=== PATIENT | male | born 1960 | race African-American/Black ===

== ENCOUNTER 2016-10-30 13:07 | Emergency (ER) | payer OTHER ==
[~2016-10-30] VITALS: Ht 193 cm; Wt 124.7 kg
[2016-10-30 13:30] VITALS: BP 131/93
--- NOTE | 2016-10-30 13:41 | Emergency Room Report ---
History of Present Illness General Chief Complaint: Headache Source: Patient Present Illness [facility] The patient is a 55-year-old male presenting for hypertension and headache. He states that he has a history of hypertension and is on some medications which he has not taken for the past 4 days. [facility] and vitals showed blood pressure of 160/112. The patient then began to take his medications as directed and blood pressure reduced at home. He describes the headache as 5/10 dull ache which began 2 days prior and has continued. No known provoking relieving factors. He denies any other symptoms including N, V, F, chills, SOB, CP, dizziness, blurred vision, weakness, neck pain Allergies: Coded Allergies: No Known Allergies (Unverified , 10/30/16) Patient History Past Medical History: see triage record, HTN Pertinent Family History: none Reviewed Nursing Documentation: PMH: Agreed, PSxH: Agreed Nursing Documentation-PMH Past Medical History: No History, Except For Hx Hypertension: Yes Review of Systems All Other Systems: negative except mentioned in HPI Physical Exam Vital Signs Date Time Temp Pulse Resp B/P (MAP) Pulse Ox O2 Delivery O2 Flow Rate FiO2 10/30/16 13:17 98.1 64 21 134/75 96 Room Air Sp02 EP Interpretation: reviewed, normal General Appearance: no apparent distress, alert, GCS 15, non-toxic Head: normocephalic, atraumatic Eyes: bilateral eye normal inspection, bilateral eye PERRL ENT: hearing grossly normal, normal pharynx, no angioedema, normal voice Neck: full range of motion, supple/symm/no masses Respiratory: chest non-tender, lungs clear, normal breath sounds, speaking full sentences Cardiovascular #1: regular rate, rhythm, no edema Gastrointestinal: normal bowel sounds, non tender, soft, non-distended, no guarding, no rebound Musculoskeletal: back normal, gait/station normal, normal range of motion, non- tender Neurologic: alert, oriented x3, responsive, motor strength/tone normal, sensory intact, speech normal Psychiatric: judgement/insight normal, memory normal, mood/affect normal, no suicidal/homicidal ideation Skin: normal color, no rash, warm/dry, well hydrated Lymphatic: no adenopathy Medical Decision Making PA Attestation Dr. Oakley is my supervising physician. Patient management was discussed with my supervising physician Diagnostic Impression: Primary Impression: Headache Qualified Codes: R51 - Headache Additional Impression: Hypertension Qualified Codes: I10 - Essential (primary) hypertension ER Course The patient is a 55-year-old male presenting for hypertension and headache Differential diagnoses include but not limited to Migraine, tension headache, HTN, ICH, CVA, YULIANA, among others PE: Vitals WNL. Non hypertensive. NAD A&Ox3 Head NC/AT PERRL RRR. Lungs CTA bilat Labs unremarkable. CT head unremarkable. Repeat blood pressures WNL. The patient will conitnue taking BP meds as his PMD prescribed and FU IVORY. ER precautions given Laboratory Tests Test 10/30/16 13:44 White Blood Count 8.9 K/UL (4.8-10.8) Red Blood Count 4.41 M/UL (4.70-6.10) L Hemoglobin 13.6 G/DL (14.2-18.0) L Hematocrit 40.1 % (42.0-52.0) L Mean Corpuscular Volume 91 FL (80-99) Mean Corpuscular Hemoglobin 30.8 PG (27.0-31.0) Mean Corpuscular Hemoglobin Concent 33.9 G/DL (32.0-36.0) Red Cell Distribution Width 13.2 % (11.6-14.8) Platelet Count 204 K/UL (150-450) Mean Platelet Volume 6.0 FL (6.5-10.1) L Neutrophils (%) (Auto) 62.8 % (45.0-75.0) Lymphocytes (%) (Auto) 26.8 % (20.0-45.0) Monocytes (%) (Auto) 9.2 % (1.0-10.0) Eosinophils (%) (Auto) 0.2 % (0.0-3.0) Basophils (%) (Auto) 1.1 % (0.0-2.0) Sodium Level 144 mEQ/L (135-145) Potassium Level 3.6 mEQ/L (3.4-4.9) Chloride Level 106 mEQ/L (98-107) Carbon Dioxide Level 28 mEQ/L (20-30) Anion Gap 10 (5-15) Blood Urea Nitrogen 23 mg/dL (7-23) Creatinine 1.2 mg/dL (0.7-1.2) Estimate Glomerular Filtration Rate > 60 mL/min (>60) Glucose Level 112 mg/dL (74-106) H Calcium Level 9.0 mg/dL (8.6-10.2) Total Bilirubin 0.3 mg/dL (0.0-1.2) Aspartate Amino Transferase (AST) 17 U/L (5-40) Alanine Aminotransferase (ALT) 23 U/L (3-41) Alkaline Phosphatase 71 U/L (40-129) Total Protein 6.7 g/dL (6.6-8.7) Albumin 3.7 g/dL (3.5-5.2) Globulin 3.0 g/dL Albumin/Globulin Ratio 1.2 (1.0-2.7) Lab Results Impression WNL CT/MRI/US Diagnostic Results CT/MRI/US Diagnostic Results : Imaging Test Ordered: CT head Impression unremarkable Last Vital Signs Date Time Temp Pulse Resp B/P (MAP) Pulse Ox O2 Delivery O2 Flow Rate FiO2 10/30/16 13:17 98.1 64 21 134/75 96 Room Air Status: improved Disposition: HOME, SELF-CARE Condition: Improved Scripts Ibuprofen* (MOTRIN*) 600 Mg Tablet 600 MG ORAL Q8H Y for For Pain, #30 TAB 0 Refills Prov: AKHIL VELASQUEZ 10/30/16 AKHIL VELASQUEZ Oct 30, 2016 13:41
[2016-10-30 14:00] LABS: BASOPHILS % (AUTO) 1.1 % (0.0-2.0); EOSINOPHILS % (AUTO) 0.2 % (0.0-3.0); LYMPHOCYTES % (AUTO) 26.8 % (20.0-45.0); MEAN CORPUSCULAR HEMOGLOBIN 30.8 PG (27.0-31.0); MEAN CORPUSCULAR HGB CONC 33.9 G/DL (32.0-36.0); MEAN CORPUSCULAR VOLUME 91 FL (80-99); MONOCYTES % (AUTO) 9.2 % (1.0-10.0); NEUTROPHILS % (AUTO) 62.8 % (45.0-75.0); PLATELET COUNT 204 K/UL (150-450); RED BLOOD COUNT 4.41 M/UL (4.70-6.10); RED CELL DISTRIBUTION WIDTH 13.2 % (11.6-14.8); WHITE BLOOD COUNT 8.9 K/UL (4.8-10.8)
--- NOTE | 2016-10-30 14:15 | Diagnostic Imaging Report ---
Indication: Headache Technique: Contiguous 5 mm thick transaxial imaging of the head obtained in a Siemens Sensation [address] scanner. Soft tissue and bone windows generated. Total Dose length Product (DLP): [address] Dose Index Volume (CTDIvol): 70.38, 0.15 mGy Comparison: none Findings: The size and configuration of the cortical sulci, basal cisterns, and ventricles are within normal limits for age. There is no mass effect, midline shift, or edema identified. There is no evidence of acute hemorrhage or abnormal intra-axial or extra-axial fluid collections. The bones and soft tissues are unremarkable. Impression: No mass effect, edema or acute bleed. The CT scanner at [facility] is accredited by the [employer] and the scans are performed using dose optimization techniques as appropriate to a performed exam including Automatic Exposure control.
[2016-10-30 14:24] LABS: ALANINE AMINOTRANSFERASE 23 U/L (3-41); ALBUMIN/GLOBULIN RATIO 1.2 (1.0-2.7); ANION GAP 10 (5-15); ASPARTATE AMINO TRANSFERASE 17 U/L (5-40); CARBON DIOXIDE 28 mEQ/L (20-30); CHLORIDE 106 mEQ/L (98-107); CREATININE 1.2 mg/dL (0.7-1.2); GLOMERULAR FILTRATION RATE > 60 mL/min (>60); HEMOLYSIS 2; POTASSIUM 3.6 mEQ/L (3.4-4.9); SODIUM 144 mEQ/L (135-145); TOTAL PROTEIN 6.7 g/dL (6.6-8.7)
[2016-10-30 14:30] VITALS: BP 157/93
[2016-10-30] MEDS ORDERED: IBUPROFEN600 MG ORAL (14:31)
[2016-10-30 14:35] VITALS: BP 157/93
== END 2016-10-30 14:35 | disposition home or self-care (01) ==
LOC: EMR 13:45
DX: R51 Headache (principal); I10 Essential (primary) hypertension
CPT/HCPCS: 36415; 70450; 80053; 85025; 96360; 99284

== ENCOUNTER 2017-05-13 10:13 | Emergency (ER) | payer OTHER ==
[~2017-05-13] VITALS: Ht 193 cm; Wt 129.3 kg
[~2017-05-13 10:13] MED LIST: IBUPROFEN600 MG ORAL
[2017-05-13] MEDS ORDERED: LOSARTAN POTAS100 MG ORAL (10:25)
[2017-05-13] MEDS ORDERED: AMLODIPINE BESYL5 MG ORAL (10:25)
[2017-05-13 10:26] VITALS: BP 163/89
[2017-05-13] MEDS ORDERED: Oseltamivir 75mg cap ORAL STA (11:07)
[2017-05-13] MEDS ORDERED: Albuterol ud Inhalation HHN ONE (11:15)
[2017-05-13] MEDS ORDERED: Ipratropium 0.02% Inh Soln 2.5ml UD HHN ONE (11:15)
--- NOTE | 2017-05-13 12:28 | Emergency Room Report ---
History of Present Illness General Chief Complaint: Flu Like Symptoms Source: Patient Present Illness HPI Patient presents with fever, cough, chest pain and dyspnea. claims dyspnea for some time. He feels acutely ill for 2-3 days. He used an inhaler earlier today "I had to". Some green phlegm. Muscle aches and some headache. Did not measure temp last night but states had a fever. Chest pain is mostly with cough and L sided, not radiating - rates at 10/10. Did get flu shot ( initially stated "no"). No NVD. Was at work and felt ill and weak. Some loose stool. Normal color. Some sore throat. Patient smokes cigars playing golf. No DM. H/O HTN. No recent cardiac evaluation. No vomiting, dysuria, rashes, calf pain or swelling, edema, polies. Allergies: Coded Allergies: No Known Allergies (Unverified , 10/30/16) Patient History Past Medical History: see triage record Social History: Reports: smoking - cigars Social History Narrative working on [employer] - Reviewed Nursing Documentation: PMH: Agreed; PSxH: Agreed Nursing Documentation-PMH Hx Hypertension: Yes Review of Systems All Other Systems: negative except mentioned in HPI Physical Exam Vital Signs Date Time Temp Pulse Resp B/P (MAP) Pulse Ox O2 Delivery O2 Flow Rate FiO2 05/13/17 10:21 98.8 82 17 163/89 94 Room Air 98.8 05/13/17 11:21 21 Sp02 EP Interpretation: reviewed, normal General Appearance: well appearing, no apparent distress, GCS 15 Head: normocephalic Eyes: bilateral eye normal inspection, bilateral eye PERRL ENT: moist mucus membranes, other - no exudates Neck: supple Respiratory: lungs clear, normal breath sounds, wheezing - minimal exp Cardiovascular #1: regular rate, rhythm Cardiovascular #2: 2+ radial (R) Gastrointestinal: normal inspection, normal bowel sounds, non tender, no mass, non-distended Musculoskeletal: back normal, gait/station normal, normal range of motion Neurologic: alert, oriented x3, grossly normal Psychiatric: mood/affect normal Skin: normal inspection, warm/dry Medical Decision Making Diagnostic Impression: Primary Impression: Influenza Additional Impressions: Bronchospasm Hypertension Qualified Codes: I10 - Essential (primary) hypertension ER Course Patient with dyspnea, URI, chest pain and wheezing. DDx: influenza, bronchitis , bronchospasm, AMI, PE, chest wall pain amongst others. Need to eval with EKG , CXR. Treat with Albuterol, tylenol, Tamiflu. Clinically not PE. EKG without injury. CXR no infiltrate. Improved with treatment. Wants to go. Not report degree of pain to me as recorded by RN. No medical emergency apparent. However, concern over h/o increasing JERONIMO and told of need for cardiac eval (ETT). Patient stable for outpatient observation and treatment. EKG Diagnostic Results Rate: normal Rhythm: NSR ST Segments: no acute changes Rhythm Strip Diag. Results EP Interpretation: yes Rhythm: NSR, no PVC's, no ectopy Chest X-Ray Diagnostic Results Chest X-Ray Diagnostic Results : Chest X-Ray Ordered: Yes # of Views/Limited/Complete: 1 View Indication: Other EP Interpretation: Yes Interpretation: no consolidation, no effusion, no pneumothorax, no acute cardiopulmonary disease Impression: No acute disease Electronically Signed by: Trent Elizabeth MD Last Vital Signs Date Time Temp Pulse Resp B/P (MAP) Pulse Ox O2 Delivery O2 Flow Rate FiO2 05/13/17 12:37 98.8 16 163/89 99 Room Air 21 98.8 05/13/17 11:35 75 Status: improved Disposition: HOME, SELF-CARE Condition: Improved Scripts Albuterol Sulfate* (ALBUTEROL SULFATE MDI*) 8.5 Gm Hfa.aer.ad 2 PUFF INH Q6H, #1 INH 0 Refills Prov: Trent Elizabeth M.D. 05/13/17 Ibuprofen* (MOTRIN*) 600 Mg Tablet 600 MG ORAL Q6H PRN for For Pain, #20 TAB Prov: Trent Elizabeth M.D. 05/13/17 Guaifenesin/Codeine Phos* (ROBITUSSIN AC*) 118 Ml Liquid 5 ML ORAL Q6H PRN for For Cough, #118 ML 0 Refills Prov: Trent Elizabeth M.D. 05/13/17 Oseltamivir Phosphate (Tamiflu) 75 Mg Capsule 75 MG ORAL TWICE A DAY, #10 CAP Prov: Trent Elizabeth M.D. 05/13/17 Referrals: NON PHYSICIAN (PCP) Trent Elizabeth M.D. May 13, 2017 12:28
[2017-05-13] MEDS ORDERED: TAMIFLU75 MG ORAL (12:31)
[2017-05-13] MEDS ORDERED: IBUPROFEN600 MG ORAL (12:31)
[2017-05-13] MEDS ORDERED: ALBUTEROL SULF8.5 GM INH (12:31)
[2017-05-13] MEDS ORDERED: GUAIFENESIN-CO118 M1 ORAL (12:31)
[2017-05-13 12:37] VITALS: BP 163/89
--- NOTE | 2017-05-13 12:56 | Diagnostic Imaging Report ---
Indication: Cough Technique: One view of the chest Comparison: none Findings: Body habitus limits evaluation. The heart is borderline enlarged. The aorta is ectatic. The lungs and pleural spaces are clear Impression: Borderline cardiomegaly No acute process
== END 2017-05-13 12:38 | disposition home or self-care (01) ==
LOC: EMR 10:58
DX: J11.1 Influenza due to unidentified influenza virus with other respiratory manifestations (principal); J98.01 Acute bronchospasm; I10 Essential (primary) hypertension; F17.210 Nicotine dependence, cigarettes, uncomplicated
CPT/HCPCS: 71045; 93005; 94640; 94664; 99284